=== PATIENT | male | born 1980 | race African-American/Black ===

== ENCOUNTER 2020-05-12 12:55 | Emergency (ER) | payer OTHER ==
[~2020-05-12] VITALS: Ht 175.3 cm; Wt 64.1 kg
[2020-05-12 13:03] VITALS: BP 129/67
[2020-05-12] MEDS ORDERED: ADVA115A INH (13:11)
[2020-05-12] MEDS ORDERED: PROAAER10 INH (13:11)
[2020-05-12] MEDS ORDERED: LIDOCAINE W/EPINEPHRINE 1% 20ML VIAL SC ONE (13:30)
[2020-05-12] MEDS ORDERED: CETACAINE SPRAY 5GM As Ordered ONE (14:07)
[2020-05-12] MEDS ORDERED: PRED20TA PO (14:40)
[2020-05-12] MEDS ORDERED: CLEO300C2 PO (14:40)
== END 2020-05-12 15:13 | disposition home or self-care (01) ==
LOC: EDBD 12:55 → M ED 12:55
DX: J36 Peritonsillar abscess (principal); R22.0 Localized swelling, mass and lump, head; Z79.51 Long term (current) use of inhaled steroids